=== PATIENT | male | born 1995 | race Caucasian/White ===

== ENCOUNTER 2021-12-26 19:20 | Emergency (ER) | payer OTHER ==
[~2021-12-26] VITALS: Ht 160 cm; Wt 82.6 kg
[2021-12-26 19:32] VITALS: BP 147/80
--- NOTE | 2021-12-26 19:33 | ED Cough/URI ---
General Chief Complaint: COVID19 Suspect/Confirmed Stated Complaint: GENERAL PAIN,COUGH,N/V History of Present Illness Date Seen by Provider: Dec 26, 2021 Time Seen by Provider: 19:33 Initial Comments Patient presents to the emergency department with body aches, cough and congestion for the past several days. Noticed fever today. Has been tested for COVID recently and it was negative. Denies recent sick contacts that he is aware of. Timing/Duration: getting worse Severity/Quality: moderate Prior Episodes/Possible Cause: no prior episodes Modifying Factors: Worse With Coughing; Improves With Lying Down, Improves With Rest Associated Symptoms: cough, fever/chills, headache, lightheadedness, muscle aches, nasal congestion (RUEL JANE APRN) Allergies and Home Medications Allergies Coded Allergies: No Known Drug Allergies (Unverified , 12/26/21) Patient Home Medication List Home Medication List Reviewed: Yes (RUEL JANE APRN) Review of Systems Review of Systems Constitutional: chills; No dizziness; fever, malaise, weakness (generalized) EENTM: No ear pain Respiratory: cough; No phlegm; short of breath Gastrointestinal: No abdominal pain, No nausea, No vomiting Musculoskeletal: muscle pain, muscle stiffness Skin: No rash (RUEL JANE APRN) All Other Systems Reviewed Negative Unless Noted: Yes (RUEL JANE APRN) Past Wnowvbg-Zigvid-Obykxu Hx Family Medical History Reviewed Nursing Family Hx (RUEL JAEN APRN) Physical Exam Vital Signs - First Documented 12/26/21 19:32 Temp 38.1 Pulse 122 Resp 20 B/P (MAP) 147/80 (102) (BETHAMY K DO) Capillary Refill : (RUEL JANE APRN) Height: '" Weight: lbs. oz. kg; BMI Method: General Appearance: WD/WN, no apparent distress HEENT: PERRL/EOMI, normal ENT inspection, TMs normal Neck: non-tender, full range of motion, supple, normal inspection Respiratory: chest non-tender, lungs clear, normal breath sounds, no respiratory distress, no accessory muscle use Cardiovascular: normal peripheral pulses, tachycardia Gastrointestinal: normal bowel sounds, non tender, soft Extremities: normal range of motion, non-tender, normal inspection Neurologic/Psychiatric: alert, normal mood/affect, oriented x 3 Skin: normal color, warm/dry (RUEL JANE APRN) Progress/Results/Core Measures Suspected Sepsis SIRS Temperature: Pulse: Respiratory Rate: Blood Pressure / Mean: (RUEL JANE APRN) Results/Orders Lab Results Laboratory Tests Test 12/26/21 19:29 Range/Units Influenza Type A (RT-PCR) Not Detected Not Detecte Influenza Type B (RT-PCR) Not Detected Not Detecte SARS-CoV-2 RNA (RT-PCR) Detected H Not Detecte (AMY CAMPOS DO) Vital Signs/I&O 12/26/21 19:32 Temp 38.1 Pulse 122 Resp 20 B/P (MAP) 147/80 (102) (AMY CAMPOS DO) Vital Signs/I&O Capillary Refill : (RUEL JANE APRN) Progress Note : Progress Note patient presents to the emergency department for flu like symptoms. Has not really taken much at home for his symptoms. Will test for COVID and influenza and determine treatment from there. 2015: Patient is positive for COVID. Home treatments discussed with patient along with reasons to return to the ER. Home medications to take were also r eviewed. Patient verbalized understanding. (RUEL JANE APRN) Departure Impression Primary Impression: COVID-19 Disposition: 01 HOME, SELF-CARE Condition: Stable Departure-Patient Inst. Decision time for Depature: 20:18 (RUEL JANE APRN) Referrals: NO,LOCAL PHYSICIAN (PCP/Family) Primary Care Physician Patient Instructions: COVID-19 Overview Add. Discharge Instructions: 1. Home and rest. 2. Push fluids. 3. Alternate Tylenol/Ibuprofen as needed for pain or fever. 4. Follow up with PCP as needed. 5. May continue over the counter medications as directed per package instructions. 6. Return here if worse or concerns. All discharge instructions reviewed with patient and/or family. Voiced understanding. Work/School Note: Work Release Form Date Seen in the Emergency Department: Dec 26, 2021 Return to Work: Dec 31, 2021 Restrictions: No Restrictions ATTENDING PHYSICIAN NOTE: I WAS PHYSICALLY PRESENT ER PHYSICIAN, BUT I WAS NOT INVOLVED IN ANY DECISION MAKING OR ANY CARE OF THIS PATIENT, AND I AM NOT COLLABORATING PHYSICIAN. (AMY CAMPOS DO) RUEL JANE APRN Dec 26, 2021 19:33 AMY CAMPOS DO Dec 29, 2021 11:08
[2021-12-26] MEDS ORDERED: IBUPROFEN 800 MG (MOTRIN) TAB PO ONE (19:45)
[2021-12-26] MEDS ORDERED: ACETAMINOPHEN 325 MG TABLET PO ONE (19:45)
== END 2021-12-26 20:26 | disposition home or self-care (01) ==
LOC: ER 19:24
DX: U07.1 COVID-19 (principal); Z28.310 Unvaccinated for COVID-19
CPT/HCPCS: 87636; 99283

== ENCOUNTER 2022-08-03 21:30 | Emergency (ER) | payer OTHER ==
[~2022-08-03] VITALS: Ht 162.6 cm; Wt 78.0 kg
[2022-08-03 21:44] VITALS: BP 147/75
[2022-08-03] MEDS ORDERED: TETANUS,DIPTH,PERTUSS P/F (BOOSTRIX) 0.5 ML VIAL IM ONE (22:00)
--- NOTE | 2022-08-03 22:05 | ED Upper Extremity ---
General Chief Complaint: Upper Extremity Stated Complaint: INJ RIGHT HAND Nursing Triage Note: Pt presents with c/o burn to R hand. He reports that he spilled hot gravey on his hand approx 2 hours [employer] fishing vessel. History of Present Illness Date Seen by Provider: Aug 03, 2022 Time Seen by Provider: 21:45 Initial Comments 26 year old male presents for burn to his right hand. Was at work, hot gravy landed on his right hand, dorsal and volar surface to wrist. He wiped it off with an apron, then rinsed it with cold water. He applied Neosporin. Last tetanus > 5 years ago. No other injuries or complaints. Onset: this evening Pain/Injury Location: right hand Method of Injury: burn Allergies and Home Medications Allergies Coded Allergies: No Known Drug Allergies (Unverified , 12/26/21) Patient Home Medication List Home Medication List Reviewed: Yes Review of Systems Constitutional: no symptoms reported, see HPI Skin: see HPI; No change in color, No dryness, No lesions; other (complains of blisters and burning to right hand but no visual findings of these present to right hand. No erythema or warmth. ) All Other Systems Reviewed Negative Unless Noted: Yes Past Iiybyqp-Izopwe-Fhhfqb Hx Immunizations Up To Date Influenza Vaccine Up-to-Date: Yes; Up-to-Date Family Medical History Reviewed Nursing Family Hx Physical Exam Vital Signs Vital Signs - First Documented 08/03/22 21:44 Temp 36.8 Pulse 81 Resp 18 B/P (MAP) 147/75 (99) Capillary Refill : Less Than 3 Seconds Height, Weight, BMI Height: '" Weight: lbs. oz. kg; 29.00 BMI Method: General Appearance: WD/WN, no apparent distress Cardiovascular: normal peripheral pulses, regular rate, rhythm Respiratory: chest non-tender, lungs clear, normal breath sounds Hand: normal inspection, no evidence of injury, normal ROM, Right, soft tissue tenderness (superficial tenderness, no erythema, warmth, abrasions, blisters, or other skin changes. ) Neurologic/Tendon: normal sensation, normal motor functions, normal tendon functions Neurologic/Psychiatric: no motor/sensory deficits, alert, normal mood/affect, oriented x 3 Skin: normal color, warm/dry Progress/Results/Core Measures Results/Orders My Orders Orders - LEEANN LUGO Dipht,Pertuss(Acell),Tet Adult (Boostrix (08/03/22 22:00) Vital Signs/I&O 08/03/22 21:44 Temp 36.8 Pulse 81 Resp 18 B/P (MAP) 147/75 (99) Blood Pressure Mean: 99 Departure Impression Primary Impression: Burn of right hand Qualified Codes: T23.161A - Burn of first degree of back of right hand, initial encounter Disposition: 01 HOME, SELF-CARE Condition: Improved Departure-Patient Inst. Decision time for Depature: 20:05 Referrals: [facility],LOCAL PHYSICIAN (PCP) Primary Care Physician Patient Instructions: Skin Abrams (DC) Add. Discharge Instructions: Apply ice pack to right hand, areas of tenderness. 20 min every 2 hours. You may alternate between Tylenol 650 milligrams and ibuprofen 600 mg every 4 hours for pain. Activity as tolerated for the right hand. Follow-up at [facility] if symptoms are not improving or worsen. Return to the emergency department for new, urgent healthcare needs. All discharge instructions reviewed with patient and/or family. Voiced understanding. Work/School Note: Work Release Form Date Seen in the Emergency Department: Aug 03, 2022 Return to Work: Aug 04, 2022 Restrictions: No Restrictions LEEANN LUGO Aug 03, 2022 22:05
== END 2022-08-03 22:20 | disposition home or self-care (01) ==
LOC: EDUNIT# 21:30 → ER 21:34
DX: T23.101A Burn of first degree of right hand, unspecified site, initial encounter (principal); Z23 Encounter for immunization; Z28.311 Partially vaccinated for COVID-19; X10.1XXA Contact with hot food, initial encounter; Y92.59 Other trade areas as the place of occurrence of the external cause; Y99.0 Civilian activity done for income or pay
CPT/HCPCS: 90715; 99281